=== PATIENT | female | born 1940 | race Hispanic/Latino ===

== ENCOUNTER → 2017-10-01 | Outpatient (CLI) | payer OTHER ==
[~2017-10-01] MED LIST: ACET-2247 PO; AEC81 PO; ALPR0.255 PO; ATOR10 PO; FELO2.5T17 PO; IRBE150T27 PO; LEVO500T2 PO; MONT10TA24 PO; PANT40TA25 PO; RANI150T7 PO
== END | disposition home or self-care (01) ==
LOC: SHCH 10:38
PROVIDERS: ATTEND Internal Medicine Cardiovascular Disease
DX: I35.0 Nonrheumatic aortic (valve) stenosis (principal); R53.83 Other fatigue
CPT/HCPCS: 93306

== ENCOUNTER 2017-10-21 11:30 | Observation (INO) | payer OTHER ==
[2017-10-16 13:13] VITALS: BP 129/64
[2017-10-16 13:18] LABS: BASOPHILS % (AUTO) 0.3 % (0.0-5.0); EOSINOPHILS % (AUTO) 0.3 % (0.0-8.0); HEMATOCRIT 40.4 % (36-48); MEAN CORPUSCULAR HGB CONC 33.8 g/dL (32.0-36.0); MEAN CORPUSCULAR VOLUME 88.8 fL (79-99); MONOCYTES % (AUTO) 5.9 % (3.0-13.0); NEUTROPHILS % (AUTO) 70.5 % (40.0-77.0); PLATELET COUNT (AUTO) 194 K/uL (130-400); RED BLOOD CELL COUNT(AUTO) 4.55 MIL/uL (4.00-5.50); RED CELL DISTRIBUTION WIDTH 14.9 % (11.0-15.5); WHITE BLOOD COUNT (AUTO) 9.2 K/uL (4.8-10.8)
[2017-10-16 13:27] LABS: CREATININE 0.9 mg/dL (0.5-1.5)
[2017-10-16 13:29] LABS: PARTIAL THROMBOPLASTIN TIME 27.8 SEC (26.3-35.5); PROTHROMBIN TIME 10.5 SEC (9.6-11.6)
[2017-10-16 13:57] LABS: APPEARANCE,URINE Clear (CLEAR); BILIRUBIN,URINE Negative (NEGATIVE); COLOR,URINE Yellow (YELLOW); GLUCOSE, URINE (UA) Negative (NEGATIVE); KETONES,URINE Negative (NEGATIVE); LEUKOCYTE ESTERASE ,URINE Negative (NEGATIVE); NITRATE,URINE Negative (NEGATIVE); OCCULT BLOOD,URINE Trace (NEGATIVE); PH,URINE 6.5 (5.0-8.0); PROTEIN,URINE Negative (NEGATIVE); UROBILINOGEN,URINE 0.2 mg/dL (0.2-1.0)
[~2017-10-21] VITALS: Ht 160 cm; Wt 67.1 kg
[2017-10-21] VITALS (11 sets, daily range): BP systolic 117–153; BP diastolic 41–79
[~2017-10-21 11:30] MED LIST changes: -ACET-2247 PO; -ALPR0.255 PO; -RANI150T7 PO
[2017-10-21] MEDS ORDERED: SODIUM CHLORIDE 0.9% 1000ML 1,000 ML IV ONE (12:22)
[2017-10-21] MEDS ORDERED: LIDOCAINE HCL 2% 20ML ONE (14:56)
[2017-10-21] MEDS ORDERED: IOPAMIDOL-370 100 ML VIAL IV ONE (14:56)
[2017-10-21] MEDS ORDERED: ISOVUE-370 50ML VIAL IV ONE ×2 (14:56→15:48)
[2017-10-21] MEDS ORDERED: NITROGLYCERIN 5 MG/ML 10 ML VIAL IV ONE (15:14)
[2017-10-21] MEDS ORDERED: MIDAZOLAM HCL 1 MG/ML 2ML VIAL ONE (15:23)
[2017-10-21] MEDS ORDERED: LABETALOL HCL 5 MG/ML 20ML VIAL IV ONE (16:01)
[2017-10-21] MEDS ORDERED: MORPHINE SULFATE 2 MG/ML 1ML SYG ONE (16:05)
[2017-10-21] MEDS ORDERED: SODIUM CHLORIDE 0.9% 1000ML 1,000 ML IV SCH (16:10)
[2017-10-21] MEDS ORDERED: GLUCAGON 1MG KIT 1 MG ML IM PRN (16:15)
[2017-10-21] MEDS ORDERED: DEXTROSE 50%-WATER 50 ML DISP.SYRIN IV PRN (16:15)
[2017-10-21] MEDS: INSULIN HUMULIN R 100 UNIT/ML 3ML SQ SCH ×2 (16:30→20:42)
[2017-10-21] MEDS ORDERED: INSULIN HUMULIN R 100 UNIT/ML 3ML SQ SCH ×7 (16:30→18:00)
[2017-10-21] MEDS ORDERED: MONTELUKAST SODIUM 10 MG TAB PO PRN (16:30)
[2017-10-21] MEDS ORDERED: PHARMACY COMMUNICATION MISC SCH (16:30)
[2017-10-21] MEDS ORDERED: INSULIN LISPRO 100 UNIT/ML 3ML SQ SCH ×8 (16:30→18:00)
[2017-10-21] MEDS ORDERED: ASPIRIN 81 MG EC TAB PO SCH (21:00)
[2017-10-22 03:30] VITALS: BP 114/58
[2017-10-22 04:02] LABS: CREATININE 0.8 mg/dL (0.5-1.5)
[2017-10-22] MEDS: INSULIN HUMULIN R 100 UNIT/ML 3ML SQ SCH ×3 (06:06→16:30)
[2017-10-22 07:27] VITALS: BP 140/71
[2017-10-22] MEDS ORDERED: LOSARTAN 50 MG TABLET PO SCH (09:00)
[2017-10-22] MEDS ORDERED: PANTOPRAZOLE SODIUM 40 MG TABLET.DR PO SCH (09:00)
[2017-10-22 11:08] VITALS: BP 148/86
[2017-10-22] MEDS ORDERED: SODIUM CHLORIDE 0.9% 1000ML 1,000 ML IV SCH (12:00)
[2017-10-22] MEDS ORDERED: IOPAMIDOL-370 75 ML VIAL IV ONE (12:40)
[2017-10-22] MEDS ORDERED: IOPAMIDOL-370 100 ML VIAL IV ONE (12:58)
[2017-10-22 16:00] VITALS: BP 128/61
[2017-10-22 19:20] VITALS: BP 146/63
[2017-10-23] MEDS ORDERED: ATORVASTATIN CALCIUM 10 MG TABLET PO SCH (09:00)
[2017-11-03] MEDS ORDERED: ALPR0.255 PO (12:24)
[2017-11-03] MEDS ORDERED: RANI150T7 PO (12:24)
[2017-11-05] MEDS ORDERED: ACET-2247 PO (06:47)
== END 2017-10-22 19:45 | disposition home or self-care (01) ==
LOC: DAH 11:30 → DAHIP 11:31 → 2BH 17:07
PROVIDERS: ADMIT Internal Medicine Cardiovascular Disease; ATTEND Internal Medicine Cardiovascular Disease
DX: I35.0 Nonrheumatic aortic (valve) stenosis (principal); I11.9 Hypertensive heart disease without heart failure; I50.9 Heart failure, unspecified; E11.9 Type 2 diabetes mellitus without complications; E78.00 Pure hypercholesterolemia, unspecified; F41.9 Anxiety disorder, unspecified; Z90.710 Acquired absence of both cervix and uterus; Z79.899 Other long term (current) drug therapy; Z79.82 Long term (current) use of aspirin
CPT/HCPCS: 36415 ×3; 71045; 71275; 80048 ×2; 81003; 82948 ×6; 83880; 85025; 85610; 85730; 93005; 93460; A6213; C1760; C1769 ×2; C1893; C1894; G0378 ×32; J1644; J2250; J3490 ×3; J7030 ×4; Q9967 ×3; 99156; 99157

== ENCOUNTER 2018-02-11 11:48 | Emergency (ER) | payer OTHER ==
[~2018-02-11 11:48] MED LIST changes: +ACET-2247 PO; +ALPR0.255 PO; -LEVO500T2 PO; -PANT40TA25 PO; +RANI150T7 PO
[2018-02-11 12:20] LABS: APPEARANCE,URINE Cloudy (CLEAR); BILIRUBIN,URINE Negative (NEGATIVE); COLOR,URINE Yellow (YELLOW); GLUCOSE, URINE (UA) Negative (NEGATIVE); KETONES,URINE Negative (NEGATIVE); LEUKOCYTE ESTERASE ,URINE Small (NEGATIVE); NITRATE,URINE Negative (NEGATIVE); OCCULT BLOOD,URINE Small (NEGATIVE); PH,URINE 5.5 (5.0-8.0); PROTEIN,URINE Negative (NEGATIVE); UROBILINOGEN,URINE 0.2 mg/dL (0.2-1.0)
[2018-02-11 12:28] LABS: BASOPHILS % (AUTO) 0.1 % (0.0-5.0); EOSINOPHILS % (AUTO) 0.1 % (0.0-8.0); MEAN CORPUSCULAR HEMOGLOBIN 28.5 pg (27.0-33.0); MEAN CORPUSCULAR HGB CONC 32.2 g/dL (32.0-36.0); MEAN CORPUSCULAR VOLUME 88.3 fL (79-99); NEUTROPHILS % (AUTO) 82.8 % (40.0-77.0); PLATELET COUNT (AUTO) 133 K/uL (130-400); RED BLOOD CELL COUNT(AUTO) 4.64 MIL/uL (4.00-5.50); RED CELL DISTRIBUTION WIDTH 15.5 % (11.0-15.5); WHITE BLOOD COUNT (AUTO) 10.1 K/uL (4.8-10.8)
[2018-02-11 12:35] LABS: POTASSIUM 3.7 mmol/L (3.5-5.1)
[2018-02-11 12:38] LABS: INR 0.99 (0.85-1.15); PARTIAL THROMBOPLASTIN TIME 26.8 SEC (26.3-35.5); PROTHROMBIN TIME 10.4 SEC (9.6-11.6)
[2018-02-11 12:40] LABS: BILIRUBIN,TOTAL 0.4 mg/dL (0.2-1.0); TOTAL PROTEIN, SERUM 9.6 g/dL (6.0-8.3)
[2018-02-11 12:43] LABS: BACTERIA,URINE Rare /HPF (None Seen); HYALINE CASTS, URINE 0-1 /LPF (0-1 /LPF); MUCUS,URINE Rare LPF (None Seen); RBC,URINE 0-1 /HPF (0-1); SQUAMOUS EPITHELIAL CELL,UR Moderate /HPF (0-2)
[2018-02-11 12:58] LABS: OCCULT BLOOD STOOL SINGLE ONLY POSITIVE (NEGATIVE)
[2018-02-11] MEDS ORDERED: SODIUM CHLORIDE 0.9% 1000ML 1,000 ML IV ONE (13:24)
[2018-02-11] MEDS ORDERED: ONDANSETRON HCL 4 MG/2 ML VIAL ONE (13:24)
== END 2018-02-11 16:38 | disposition home or self-care (01) ==
LOC: EDH 11:48
DX: T62.8X1A Toxic effect of other specified noxious substances eaten as food, accidental (unintentional), initial encounter (principal); R19.7 Diarrhea, unspecified; Y92.89 Other specified places as the place of occurrence of the external cause; I10 Essential (primary) hypertension; E11.9 Type 2 diabetes mellitus without complications; I25.10 Atherosclerotic heart disease of native coronary artery without angina pectoris; Z95.1 Presence of aortocoronary bypass graft
CPT/HCPCS: 36415; 80053; 81001; 82270; 85025; 85610; 85730; 87046; 87205; 87324; 96361; 96374; 99285; J2405; J7030

== ENCOUNTER 2018-02-12 08:09 | Emergency (ER) | payer OTHER ==
[2018-02-12] MEDS ORDERED: FAMOTIDINE/PF 20 MG/2 ML VIAL IV ONE (08:29)
[2018-02-12] MEDS ORDERED: LACTATED RINGERS 1000ML 1,000 ML IV ONE (08:29)
[2018-02-12] MEDS ORDERED: ONDANSETRON HCL 4 MG/2 ML VIAL ONE (08:29)
[2018-02-12 08:32] LABS: BASOPHILS % (AUTO) 0.3 % (0.0-5.0); EOSINOPHILS % (AUTO) 0.4 % (0.0-8.0); HEMATOCRIT 40.4 % (36-48); LYMPHOCYTES % (AUTO) 16.1 % (21.0-51.0); MEAN CORPUSCULAR HEMOGLOBIN 29.1 pg (27.0-33.0); MONOCYTES % (AUTO) 11.3 % (3.0-13.0); NEUTROPHILS % (AUTO) 71.9 % (40.0-77.0); NUCLEATED RED BLOOD CELLS 0.1 % (0.0-0.19); PLATELET COUNT (AUTO) 126 K/uL (130-400); RED BLOOD CELL COUNT(AUTO) 4.59 MIL/uL (4.00-5.50); RED CELL DISTRIBUTION WIDTH 15.5 % (11.0-15.5); WHITE BLOOD COUNT (AUTO) 7.5 K/uL (4.8-10.8)
[2018-02-12 08:39] LABS: POTASSIUM 3.4 mmol/L (3.5-5.1)
[2018-02-12 08:43] LABS: ALBUMIN 3.6 g/dL (3.5-5.0); BILIRUBIN,TOTAL 0.4 mg/dL (0.2-1.0); TOTAL PROTEIN, SERUM 8.8 g/dL (6.0-8.3)
[2018-02-12 08:43] LABS: APPEARANCE,URINE Cloudy (CLEAR); BILIRUBIN,URINE Negative (NEGATIVE); COLOR,URINE Yellow (YELLOW); GLUCOSE, URINE (UA) Negative (NEGATIVE); KETONES,URINE Negative (NEGATIVE); LEUKOCYTE ESTERASE ,URINE Small (NEGATIVE); NITRATE,URINE Positive (NEGATIVE); OCCULT BLOOD,URINE Small (NEGATIVE); PH,URINE 5.5 (5.0-8.0); PROTEIN,URINE Negative (NEGATIVE); UROBILINOGEN,URINE 0.2 mg/dL (0.2-1.0)
[2018-02-12 08:55] LABS: BACTERIA,URINE Many /HPF (None Seen); MUCUS,URINE Few LPF (None Seen)
[2018-02-12] MEDS ORDERED: LOPERAMIDE HCL 2 MG CAP PO ONE (13:19)
== END 2018-02-12 13:28 | disposition home or self-care (01) ==
LOC: EDH 08:09
DX: R19.7 Diarrhea, unspecified (principal); R11.2 Nausea with vomiting, unspecified; R10.9 Unspecified abdominal pain; E11.9 Type 2 diabetes mellitus without complications; I10 Essential (primary) hypertension; I25.810 Atherosclerosis of coronary artery bypass graft(s) without angina pectoris; Z95.1 Presence of aortocoronary bypass graft
CPT/HCPCS: 36415; 80053; 83690; 85025; 96361; 96374; 96375; 99284; J2405; J3490; J7120

== ENCOUNTER → 2020-08-23 | Outpatient (CLI) | payer OTHER ==
[~2020-08-23] MED LIST changes: -FELO2.5T17 PO; +IOHEXOL-350 75 ML VIAL IV ONE; +IRBE150T24 PO; -IRBE150T27 PO; -MONT10TA24 PO; +MONT10TA32 PO; +[UNRECOGNIZED DRUG - CODE] PO
== END | disposition home or self-care (01) ==
LOC: RAH 07:32
PROVIDERS: ATTEND Internal Medicine Cardiovascular Disease
DX: I71.4 Abdominal aortic aneurysm, without rupture (principal); I51.7 Cardiomegaly; Z95.2 Presence of prosthetic heart valve
CPT/HCPCS: 71275; Q9967

== ENCOUNTER 2025-01-20 09:17 | Emergency (ER) | payer OTHER ==
[~2025-01-20] VITALS: Ht 160 cm; Wt 63.0 kg
[~2025-01-20 09:17] MED LIST changes: -IOHEXOL-350 75 ML VIAL IV ONE; -IRBE150T24 PO; +IRBE150T34 PO; +MONT-39 PO; -MONT10TA32 PO
--- NOTE | 2025-01-20 10:23 | HMCIMG ---
EXAM: CT Abdomen and Pelvis without IV contrast CLINICAL HISTORY: Diffuse abdominal pain. TECHNIQUE: Thin collimated axial CT images of the abdomen and pelvis were obtained with sagittal and coronal reformatted images also submitted. CT scan is done according to ALARA (As Low As Reasonably Achievable). CONTRAST: None. COMPARISON: CT abdomen and pelvis dated 04/09/2017. FINDINGS: Mild atelectatic opacities in the right middle lobe and left lingula. Partially visualized aortic valve calcifications and a questionable prosthesis. There is 2.2 cm focal left posterior medial diaphragmatic hernia, which contains a portion of the abdominal fat. Tiny calcified granuloma in the right hepatic lobe. No focal abnormality within the gallbladder, pancreas, spleen, adrenals, or kidneys. No renal, ureteral, or bladder calculus. The urinary bladder is suboptimally distended and grossly unremarkable. Status post hysterectomy. Questionable subtle mucosal thickening in the small and large bowel loops, concerning acute enterocolitis. No bowel obstruction. The appendix is not visualized. No inflammatory changes around the cecum. Uncomplicated colonic diverticula. Mild calcific atherosclerotic disease in the abdominal aorta and its branches. No pathological lymphadenopathy in the abdomen or pelvis. No ascites or pneumoperitoneum. No acute bony abnormality is evident. Degenerative osseous changes. Bilateral chronic L5 spondylolysis with grade 1 anterior listhesis of L5 on S1. IMPRESSIONS: Questionable mild acute enterocolitis. Uncomplicated colonic diverticula. Stable 2.2 cm focal left posterior medial diaphragmatic hernia, which contains a portion of the abdominal fat. On comparison with the prior CT dated 04/09/2017, there is interval improvement in the previously noted gastric inflammation and acute sigmoid diverticulitis. /Gregory
[2025-01-20 10:34] LABS: IMMATURE GRANULOCYTE ABSOLUTE 0.02 K/uL (0-1); NUCLEATED RED BLOOD CELLS 0.0 % (0.0-0.19); PLATELET COUNT (AUTO) 130 K/uL (130-400); RED BLOOD CELL COUNT(AUTO) 4.22 MIL/uL (4.00-5.50); RED CELL DISTRIBUTION WIDTH 14.4 % (11.0-15.5); WHITE BLOOD COUNT (AUTO) 6.8 K/uL (4.8-10.8)
[2025-01-20] MEDS: 0.9%NACL 1000ML 1,000 ML IV ONE (10:39)
[2025-01-20 10:40] LABS: CREATININE 0.9 mg/dL (0.5-1.0); GLOMERULAR FILTR. RATE CALC 63.0 mL/min (>90); GLUCOSE,RANDOM 120.0 mg/dL (70-105); SODIUM SERUM 135.0 mmol/L (136-145); UREA NITROGEN, BLOOD 17.0 mg/dL (7-18)
[2025-01-20 10:46] LABS: ASPARTATE AMINOTRANSFERASE 16.0 U/L (10-37); CREATINE KINASE, TOTAL 38.0 U/L (21-232); TOTAL PROTEIN, SERUM 7.8 g/dL (6.0-8.3)
--- NOTE | 2025-01-20 11:07 | EKG ---
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
[2025-01-20 11:59] LABS: APPEARANCE,URINE CLEAR (CLEAR); GLUCOSE, URINE (UA) NEGATIVE (NEGATIVE); LEUKOCYTE ESTERASE ,URINE NEGATIVE Leu/uL (NEGATIVE); NITRATE,URINE NEGATIVE (NEGATIVE); OCCULT BLOOD,URINE SMALL (NEGATIVE)
[2025-01-20 12:04] LABS: ADD UA MICROSCOPIC YES
[2025-01-20 12:10] LABS: NON-SQUAMOUS EPITHELIAL CELL <1 /HPF (0-2); SQUAMOUS EPITHELIAL CELL,UR RARE /HPF (0-2)
--- NOTE | 2025-01-20 12:59 | EKG ---
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
[2025-01-20] MEDS ORDERED: ONDA-243 PO (15:00)
--- NOTE | 2025-01-20 15:01 | ERN ---
ED Note History of Present Illness Stated Complaint: ABD PAIN DIARRHEA Chief Complaint: Nausea,Vomiting,Diarrhea Time Seen by MD: 09:21 Dictation: 84-year-old female presenting to the emergency department with nausea vomiting diarrhea nonbloody, over the past few days who positive sick contacts. Patient reports feeling weak due to the diarrhea. No chest pain or shortness of breath no fever Allergies: Coded Allergies: No Known Allergies (Unverified Allergy, 06/23/13) Home Meds Reported Medications Acetaminophen (Tylenol) 325 Mg Tablet, 325 MG PO AD PRN for PAIN LEVEL 1 TO 5, TAB 11/05/17 Alprazolam (Alprazolam) 0.25 Mg Tablet, 0.25 MG PO HSPRN PRN for ANXIETY/AGITATION, TAB 11/03/17 Ranitidine HCl (Ranitidine HCl) 150 Mg Tablet, 150 MG PO DAILY, TAB 11/03/17 Atorvastatin Calcium (LIPITOR) 10 Mg Tab, 10 MG PO QODAY, TAB 01/03/15 Aspirin (ASPIRIN 81 MG ECTAB) 81 Mg Ectab, 81 MG PO HS, TAB.EC 01/03/15 Montelukast Sodium (Montelukast Sodium) 10 Mg Tablet, 10 MG PO HS PRN for ALLERGIES, TAB 01/03/15 Irbesartan (Irbesartan) 150 Mg Tablet, 150 MG PO AM, TAB 01/03/15 Felodipine (Felodipine ER) 2.5 Mg Tab.er.24h, 2.5 MG PO AM, TAB 01/03/15 Past Medical History Past Medical History: Diabetes-Type II, GERD, Hypertension Surgical History: Hysterectomy Surgical History Other: HEART VALVE, Review of System Dictation Constitutional: Negative for fever,chills, and weight loss Eyes: Negative for injury, pain,redness, and discharge ENT: Negative for injury,pain or swelling Cardiovascular: Negative for chest pain, palpitations, and edema Respiratory: Negative for shortness of breath, cough, and wheezing, Abdomen/GI: Per HPI : Negative for injury, bleeding and discharge MS/Extremity: Negative for injury and deformity Skin: Negative for rash, and discoloration Neuro: N per HPI Psych: Negative for suicide ideation, homicidal ideation, and hallucinations Initial Vital Sign VS Vital Signs Date Time Temp Pulse Resp B/P (MAP) Pulse Ox O2 Delivery O2 Flow Rate FiO2 01/20/25 09:20 99.0 65 16 129/59 97 0 01/20/25 10:52 Room Air* 21 Physical Exam Dictation General: awake, alert, NAD Head/Face: Normocephalic, atraumatic Eyes: PERRL, EOMI, vision at baseline ENT: oral cavity clear, TMs clear, no signs of infection Neck: Trachea midline, supple, no nuchal rigidity Cardiovascular: RRR, normal S1/S2, No MRGs, no JVD Respiratory: CTAB, no respiratory distress, No rales or wheezes Abdomen: Soft, non-tender, non-distended, normal bowel sounds, no guarding or rebound. Skin: Warm, dry, normal turgor, no rash MS/Extremity: Pulses equal, no cyanosis, neurovascular intact, FROM Neuro: COAx4, GCS 15, strength 5/5, CN 2-12 intact, normal cerebellar exam, normal gait, Psych: Normal behavior, mood, and affect normal Results (Laboratory/Radiology) Laboratory/Radiology Laboratory Tests Test 01/20/25 10:24 01/20/25 11:21 01/20/25 13:30 White Blood Count 6.8 K/uL (4.8-10.8) Red Blood Count 4.22 MIL/uL (4.00-5.50) Hemoglobin 12.6 g/dL (12.0-16.0) Hematocrit 38.6 % (36-48) Mean Corpuscular Volume 91.5 fL (79-99) Mean Corpuscular Hemoglobin 29.9 pg (27.0-33.0) Mean Corpuscular Hemoglobin Concent 32.6 g/dL (32.0-36.0) Red Cell Distribution Width 14.4 % (11.0-15.5) Platelet Count 130 K/uL (130-400) Mean Platelet Volume 10.3 fL (7.5-10.5) Immature Granulocyte % (Auto) 0.3 % (0-1) Neutrophils (%) (Auto) 83.7 % (40.0-77.0) H Lymphocytes (%) (Auto) 9.4 % (21.0-51.0) L Monocytes (%) (Auto) 6.1 % (3.0-13.0) Eosinophils (%) (Auto) 0.4 % (0.0-8.0) Basophils (%) (Auto) 0.1 % (0.0-5.0) Neutrophils # (Auto) 5.7 K/uL (1.8-7.7) Lymphocytes # (Auto) 0.6 K/uL (1.0-4.8) L Monocytes # (Auto) 0.4 K/uL (0.1-1.0) Eosinophils # (Auto) 0.03 K/uL (0.00-0.70) Basophils # (Auto) 0.01 K/uL (0.00-0.20) Absolute Immature Granulocyte (auto 0.02 K/uL (0-1) Nucleated Red Blood Cells 0.0 % (0.0-0.19) White Cell Morphology Comment See comments Sodium Level 135 mmol/L (136-145) L Potassium Level 3.7 mmol/L (3.5-5.1) Chloride Level 101 mmol/L (101-111) Carbon Dioxide Level 29 mmol/L (21-32) Blood Urea Nitrogen 17 mg/dL (7-18) Creatinine 0.9 mg/dL (0.5-1.0) Glomerular Filtration Rate Calc 63 mL/min (>90) Random Glucose 120 mg/dL (70-105) H Lactic Acid Level 1.9 mmol/L (0.8-2.5) Total Calcium 8.7 mg/dL (8.5-10.1) Total Bilirubin 0.6 mg/dL (0.2-1.0) Direct Bilirubin 0.2 mg/dL (0.0-0.3) Aspartate Amino Transf (AST/SGOT) 16 U/L (10-37) Alanine Aminotransferase (ALT/SGPT) 21 U/L (12-78) Alkaline Phosphatase 64 U/L (50-136) Total Creatine Kinase 38 U/L (21-232) # Troponin I High Sensitivity 70 ng/L (4-50) *H 64 ng/L (4-50) *H Total Protein 7.8 g/dL (6.0-8.3) Albumin 3.6 g/dL (3.5-5.0) Lipase 31 U/L (16-77) Urine Color COLORLESS (YELLOW) Urine Appearance CLEAR (CLEAR) Urine pH 6.0 (5.0-8.0) Urine Specific [place] 1.004 (1.001-1.031) Urine Protein NEGATIVE mg/dL (NEGATIVE) Urine Glucose (UA) NEGATIVE mg/dL (NEGATIVE) Urine Ketones NEGATIVE mg/dL (NEGATIVE) Urine Occult Blood SMALL (NEGATIVE) H Urine Nitrate NEGATIVE (NEGATIVE) Urine Bilirubin NEGATIVE mg/dL (NEGATIVE) Urine Urobilinogen 0.2 mg/dL (0.2-1.0) Urine Leukocyte Esterase NEGATIVE Luis/uL Urine RBC 0-1 /HPF (0-1) Urine WBC None /HPF (0-1) Urine Squamous Epithelial Cells RARE /HPF (0-2) Urine Non-Squamous Epithelial Cells <1 /HPF (0-2) Urine Bacteria None /HPF (None Seen) Labs Reviewed?: Yes EKG Comment: HR 66. normal sinus rhythm normal intervals inverted T-waves laterally ED Course ED Course Orders Procedure Category Date Status Time 12 Lead Ekg Tracing- EKG 01/20/25 Complete Technical 09:45 Basic Metabolic Panel LAB 01/20/25 Complete 09:45 Cbc With Differential LAB 01/20/25 Complete 09:45 Hepatic Function Panel LAB 01/20/25 Complete 09:45 Creatine Kinase, Total LAB 01/20/25 Complete 09:45 Troponin I High LAB 01/20/25 Complete Sensitivity 09:45 Lactic Acid LAB 01/20/25 Complete 09:45 Lipase LAB 01/20/25 Complete 09:45 Ct Abd/Pel Wo Con CT 01/20/25 Resulted Renal/Appy 09:45 Ondansetron 4mg Inj PHA 01/20/25 Complete (Zofran 4mg Inj) 10:00 0.9%Nacl 1000ml (Ns PHA 01/20/25 Complete 1000ml) 10:00 Urinalysis Profile LAB 01/20/25 Complete 11:46 Troponin I High LAB 01/20/25 Complete Sensitivity 12:51 12 Lead Ekg Tracing- EKG 01/20/25 Complete Technical 12:51 Current Medications Medications (Trade) Dose Ordered Sig/Anderson Route PRN Reason Start Time Stop Time Status Last Admin Dose Admin Ondansetron HCl (zoFRAN 4MG INJ) 4 mg ONCE ONCE IVP 01/20/25 10:00 01/20/25 10:01 DC 01/20/25 10:39 Sodium Chloride 1,000 ml @ 0 mls/hr ONCE ONCE IV 01/20/25 10:00 01/20/25 10:01 DC 01/20/25 10:39 Vital Signs Date Time Temp Pulse Resp B/P (MAP) Pulse Ox O2 Delivery O2 Flow Rate FiO2 01/20/25 10:52 64 18 114/49 96 Room Air* 0 21 01/20/25 09:20 99.0 65 16 129/59 97 0 Medical Decision Making MDM MDM: Differential diagnosis: Rationale: Tests considered and ordered secondary to shared decision making inc lude: Previous outside records reviewed: Old ER visits. Risk of complication and/or morbidity or mortality of patient management: None Medications-Per medication reconciliation Need for hospitalization: Patient does not meet criteria for hospitalization. Need for emergency major/minor surgery: No There are no social concerns with this patient. Prescription drug management Prescriptions will include symptomatic care Patient's prior external medical records from other ER visits were reviewed by me as indicated. Prior testing and results from previous visits were reviewed. Prior tests were taken into account with medical decision making and resource utilization, independent historian/historians were used to obtain complete medical history. I independently interpreted the test that were performed, results were reviewed by me and considered findings on radiology if ordered. Medical management and examination interpretation discussions were had by me with other qualified healthcare professionals as indicated for the patient's care. 84-year-old female with acute gastroenteritis dehydration stable exam negative workup symptoms improved wants to go home prescriptions given. DX & DISP Disposition: Discharge Departure Impression: Primary Impression: Acute gastroenteritis Condition: Stable Scripts Ondansetron (Ondansetron Odt) 4 Mg Tab.rapdis 1 TAB PO BID PRN for nausea/vomiting for 5 Days, #10 TAB 0 Refills Prov: ARVIN COTA MD 01/20/25 Referrals: GEORGES SCHULTZ MD (PCP) ARVIN COTA MD Jan 20, 2025 15:01
[2025-01-20 15:41] VITALS: BP 121/59; PULSE 65; RESP 18; TEMP 98.4; O2SAT 97
== END 2025-01-20 15:54 | disposition home or self-care (01) ==
LOC: EDH 09:17
DX: K52.9 Noninfective gastroenteritis and colitis, unspecified (principal); E11.9 Type 2 diabetes mellitus without complications; I11.9 Hypertensive heart disease without heart failure; Z79.82 Long term (current) use of aspirin; Z87.19 Personal history of other diseases of the digestive system; Z90.710 Acquired absence of both cervix and uterus
CPT/HCPCS: 99285; 74176; 96374; 96361; 82550; 80076; 84484 ×2; 80048; 83690; 85025; 83605; 81001; 36415; 93005 ×2; J7030; J2405